=== PATIENT | female | born 1960 | race Caucasian/White ===

== ENCOUNTER → 2017-01-13 | Outpatient (CLI) | payer OTHER ==
[2016-04-22 12:30] VITALS: BP 120/54
[~2017-01-13] MED LIST: ACYC400T PO; ASPI-482 PO; BUSP5TAB PO; CARI350T PO; CHOL10003 PO; CLIN-44 PO; DICL100G7 TP; DULO60CA6 PO; FAMO-63 PO; FISH1CAP PO; HYDR-2679 PO; HYDR-965 PO; IBUP-1060 PO; IBUP1TAB PO; LEVO500T38 PO; LIDO700A4 TP; LISI-338 PO; LORA10TA3 PO; OMEG1CAP38 PO; OMEP20CA9 PO; OMEP20TA PO; PRED-220 PO; PROAIR HFA8.5 GM IH; TRAM50TA PO; ZOLP10TA4 PO; ZOLP5TAB PO; lidocaine TOP; voltaren gel
--- NOTE | 2017-01-13 15:17 | KCIC ---
PQRS STATEMENT One or more of the following individualized dose reduction techniques were utilized for this study: 1.Automated exposure control 2.Adjustment of the mA and/or kV according to patient size 3.Use of iterative reconstruction technique CT maxillofacial Indication: Reason For Study Reason: CHRONIC SINUSITIS / Spl. Instructions: / History: Sinus infections for 2-3 months, congestion, dryness,cough. Technique: multiple contiguous axial images were obtained through the facial bones. Coronal and sagittal reformations were created. Findings: There is mucosal thickening of the bilateral maxillary sinuses with small fluid levels bilaterally slightly larger on the right. Of note, there has been a left medial antrectomy but this is not been performed on the right. The nasopharynx and frontal sinuses are clear. Mastoid air cells are clear. Limited intracranial contents are grossly unremarkable. Globes orbits are within normal limits. Impression: - There are fluid levels within the bilateral maxillary sinuses slightly larger on the right. Correlate for clinical signs and symptoms of acute sinusitis. - There are postsurgical changes of previous left medial antrectomy. Electronically signed by: Roman Alejandre (Jan 13, 2017 15:15:52)
== END | disposition home or self-care (01) ==
LOC: KCIC CT 13:38
PROVIDERS: ATTEND Otolaryngology
DX: J32.9 Chronic sinusitis, unspecified (principal); R09.81 Nasal congestion; J34.89 Other specified disorders of nose and nasal sinuses; R05 Cough
CPT/HCPCS: 70486

== ENCOUNTER → 2017-10-24 | Outpatient (CLI) | payer OTHER ==
[2016-04-22 12:30] VITALS: BP 120/54
[~2017-10-24] MED LIST changes: -CLIN-44 PO; +CLIN150C14 PO; +DICL100G18 TP; -DICL100G7 TP; -LEVO500T38 PO; +LEVO500T59 PO; -OMEP20TA PO; +OMEP20TA8 PO
--- NOTE | 2017-10-24 16:30 | KCIC ---
Three-view bilateral knee dated 10/24/2017. No comparison available. Clinical indication: Bilateral knee pain for one week. FINDINGS: 3 views bilateral knee show normal bony alignment. No displaced fracture. No acute osseous or articular abnormality. Minimal tricompartmental hypertrophic changes. Suspected small joint effusion on the right. No loose body. IMPRESSION: 1. No acute bony abnormality. 2. Mild bilateral tricompartmental DJD. 3. Suspected small joint effusion on the right. Electronically signed by: Simon Pablo MD (10/24/2017 4:27 PM) [facility]-KC[facility]
== END | disposition home or self-care (01) ==
LOC: KCIC 15:56
PROVIDERS: ATTEND Family Medicine
DX: M17.0 Bilateral primary osteoarthritis of knee (principal); M25.462 Effusion, left knee; M25.461 Effusion, right knee
CPT/HCPCS: 73562

== ENCOUNTER → 2018-08-11 | Outpatient (CLI) | payer OTHER ==
[2016-04-22 12:30] VITALS: BP 120/54
--- NOTE | 2018-08-11 13:27 | KCIC ---
EXAM: Thoracic spine, 3 views. HISTORY: Pain. COMPARISON: None. FINDINGS: Total, lateral and swimmer's views of the thoracic spine are obtained. There is mild S-shaped thoracolumbar scoliosis, with dextrocurvature centered at T7 and levocurvature centered at L1. There is no listhesis. The thoracic vertebral bodies are normal in height and the disc spaces are preserved. There is degenerative endplate remodeling with disc space narrowing and osteophytosis at C5-C6 and C6-C7. There is cervical kyphosis centered at C4-C5. No segmentation anomaly is seen. IMPRESSION: 1. Degenerative change involving the lower cervical spine. 2. No acute osseous finding. 3. Mild thoracolumbar scoliosis. Electronically signed by: Maria Luz Wheatley MD (08/11/2018 1:23 PM) [facility]
== END | disposition home or self-care (01) ==
LOC: KCIC 13:04
PROVIDERS: ATTEND Family Medicine
DX: M47.892 Other spondylosis, cervical region (principal); M48.02 Spinal stenosis, cervical region; M41.85 Other forms of scoliosis, thoracolumbar region; M17.0 Bilateral primary osteoarthritis of knee; I10 Essential (primary) hypertension; E78.00 Pure hypercholesterolemia, unspecified; J44.9 Chronic obstructive pulmonary disease, unspecified; K21.9 Gastro-esophageal reflux disease without esophagitis
CPT/HCPCS: 72072

== ENCOUNTER → 2018-09-12 | Outpatient (CLI) | payer OTHER ==
[2016-04-22 12:30] VITALS: BP 120/54
--- NOTE | 2018-09-12 11:59 | KCIC ---
MRI Cervical Spine Without Contrast History: Chronic cervical pain, neck pain into the right upper extremity Technique: Multiplanar, multi sequential noncontrast MR imaging was performed of the cervical spine. Comparison: None Findings: There is motion degradation even for repeated images. Cervical cord caliber is within normal limit without expansile or defined signal abnormality, limited evaluation for more subtle signal change due to motion. There is fluid about the tip of the dens more eccentric to the left, also very minimal fluid associated with the lateral mass articulations at C1-2. Cervical vertebral body stature is maintained. There is grade 1 anterior spondylolisthesis C7-T1, negligible anterior spondylolisthesis T1-2, T2-3, and C2-3. There is straightening of the cervical spine. There is more advanced degenerative disc disease C5-6 and C6-7, minimally at C7-T1, mild disc desiccation C3-4 and C4-5. There is very minimal endplate edema C5-6 and C6-7, no fluid in the intervertebral disc spaces. There is anterior annular tear at C4-5. There is no significant abnormality of the cervical medullary junction. C2-C3: Spinal canal and right neural foramen are adequate. There is fairly severe left facet degenerative change contributing to [id number] narrowing of the left neural foramen. C3-C4: There is shallow protrusion more eccentric to the far right lateral recess. Spinal canal is overall adequate. There is severe facet degenerative change bilaterally. There is likely mild narrowing of left neural foramen and probable [id number] narrowing on the right. There is right uncovertebral degenerative change. C4-C5: There is severe left facet hypertrophic change, to a lesser degree on the right. Spinal canal is adequate. There is probable minimal posterior narrowing of the left neural foramen, right neural foramen overall adequate. C5-C6: There is disc osteophyte complex and bulge. Central canal is narrowed to 7-8 mm. There is bilateral facet degenerative change, also uncovertebral degenerative change greater on the right. There is likely moderate to severe right and probable moderate left neural foramina compromise although poorly characterized due to motion. C6-C7: There is disc osteophyte complex and bulge, central canal narrowed to about 9 mm. The neural foramina are overall adequate. There is mild right uncovertebral degenerative change. C7-T1: There is facet hypertrophic change. Spinal canal is adequate. There is likely small synovial cyst anterior to the right facet articulation about 2 mm in size. There is mild uncovertebral degenerative change. There is fairly severe right and likely mild left neural foramina compromise. There is also likely synovial cyst associated with left facet articulation laterally about 0.6 cm in size, no neural impingement. Impression: 1. Exam is degraded by motion even for repeated images. There is spinal stenosis on the order of 7-8 mm C5-C6 and to lesser degree at C6-7. 2. There is multilevel facet and uncovertebral degenerative change contributing to neural foramina compromise. Neural foramina are suboptimally evaluated due to motion, suspected narrowing greatest on the right at C7-T1, right greater than left at C5-C6, to a lesser degree on the right at C3-C4 and on the left at C2-3. 3. There is degenerative disc disease greatest C5-6 and C6-7. There is multilevel spondylosis. There is multilevel mild abnormal alignment. 4. There is nonspecific fluid about the tip of the dens greater on the left, also minimal fluid associated with the lateral mass articulations at C1-2 more likely be reactive/degenerative in etiology. Electronically signed by: Jono Horne MD (09/12/2018 11:56 AM) [facility]
== END | disposition home or self-care (01) ==
LOC: KCIC MRI 09:04
PROVIDERS: ATTEND Family Medicine
DX: M51.35 Other intervertebral disc degeneration, thoracolumbar region (principal); M43.13 Spondylolisthesis, cervicothoracic region; M47.892 Other spondylosis, cervical region; M48.02 Spinal stenosis, cervical region; M85.88 Other specified disorders of bone density and structure, other site
CPT/HCPCS: 72141

== ENCOUNTER → 2018-11-16 | Outpatient (CLI) | payer OTHER ==
[2016-04-22 12:30] VITALS: BP 120/54
[~2018-11-16] MED LIST changes: +ALBU2.5V8 IH; +ATOR20TA58 PO; +DICL75TA PO; +FEXO180T16 PO; +FLUT1BLS3 IH; +HYDR-3165 PO; -HYDR-965 PO; -PROAIR HFA8.5 GM IH; +TIZA4CAP PO
--- NOTE | 2018-11-16 16:33 | PAIN ---
DATE OF SERVICE: 11/16/2018 INITIAL CONSULTATION FOR PAIN CLINIC CHIEF COMPLAINT: Neck and right upper extremity pain. HISTORY OF PRESENT ILLNESS: The patient is a 58-year-old female who presents with history of pain since about the year 1999, gradually increasing, worse over the past year, pain in the base of the neck, bilateral shoulders radiating to the right upper extremity, mostly in the anterior biceps, anterior forearm with some tingling and numbness in the right hand. The patient reports it is becoming more constant, changes during the day; worse with activity, reaching above her head with her left arm, any weightbearing or carrying items with left arm as well with repetitive motions. The patient reports it is much worse with trying to lay on her left side at night, awakens her from sleep fairly often, at least once or twice a night. The patient reports she has tried chiropractic treatment, also has had physical therapy this year, trigger point injections this year and epidural injections about 14 years ago, all of which were helpful. Chiropractic treatment was temporary. Physical therapy has been temporary as well. The patient reports she has taken Tylenol No.3, which she reports helps only little without much improvement and is not likely what she feels when she takes it. The patient reports no loss of motor function, but significant fatigability with left upper extremity with activities. The patient reports no symptoms in the left upper extremity. The patient did have MRI scan of the cervical spine showing spinal stenosis of 7-8 mm at C5-C6 and to a lesser degree at C6-C7 level with degenerative change, multilevel facet and uncovertebral degenerative change contributing to neural foraminal compromise, greatest on the right at C7-T1, degenerative disk disease greatest at C5-C6 and C6-C7. The patient reports pain is constant, becoming more noticeable, aching, sharp, shooting, dull, tingling and radiating. The patient rates her disability rate from 0-10, 10 being the worst as 5 with family and home responsibilities, 6 with recreation, 2 with social activity, 4 with occupation, 7 with sexual behavior, 1 with self-care and 4 with life support activities. PAST MEDICAL HISTORY: Significant for hearing loss, COPD, cigarette smoking, quit 11 years ago, hypertension, rheumatic fever as a child, arthritis. PREVIOUS SURGERIES: Include shoulder surgery in 2017, wrist surgery in 2007, elbow surgery in 2015 and sinus surgery in 2015 and 2017. CURRENT MEDICATIONS: Include, fexofenadine, atorvastatin, buspirone, ProAir inhaler, lisinopril, zolpidem, daily baby aspirin, vitamins, Cymbalta, tizanidine, diclofenac, atorvastatin, and fluticasone inhaler. ALLERGIES: The patient has no known drug allergies. FAMILY HISTORY: Significant for no major medical problems other than sinus issues, heart disease, osteoporosis and colon cancer. SOCIAL HISTORY: The patient drinks alcohol once or twice a week, does not smoke, quit many years ago. Denies any illegal, illicit or recreational drugs. She is , lives with her spouse, has no children, living at home, lives locally in [place], [place]. REVIEW OF SYSTEMS: The patient's review of systems is positive for those items mentioned in history of present illness. All systems reviewed and otherwise negative; complete, full and well documented on the patient's chart. PHYSICAL EXAMINATION: VITAL SIGNS: The patient's blood pressure is 136/88, pulse is 70, respirations 18, temperature 97.7 degrees Fahrenheit, height is 5 feet 4 inches, weight 137 pounds. GENERAL: The patient is awake, alert, oriented, appropriate, very pleasant demeanor. HEENT: Head shows normocephalic, atraumatic. Extraocular movements are intact and symmetrical. Oral cavity: Mucous membranes moist and pink. Dentition is intact. NECK: Shows anterior throat supple without palpable lymphadenopathy noted. Swallow reflex symmetrical. CHEST: Shows normal with inspection. Breath sounds clear to auscultation bilaterally. HEART: Shows S1, S2 clear. No murmurs auscultated. ABDOMEN: Soft, nontender, nondistended. No palpable organomegaly is noted. No rebound or guarding demonstrated. BACK: Shows spine grossly in the midline. Normal-appearing cervical lordotic curvature, thoracic kyphotic curvature and lumbar lordotic curvature. Cervical paraspinous muscle shows symmetrical on inspection; on palpation shows some moderate tenderness only diffusely in the middle and lower distribution of the paraspinous muscles, and some into the right superior medial trapezius, but without trigger points without radiation. The patient has good rotation of motion of the cervical spine, both laterally greater than 4-5 degrees right and left as well as full extension and full forward flexion without significant pain reported. EXTREMITIES: The patient's upper extremities show deep tendon reflexes at 2+ in biceps and triceps tendons bilaterally. 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 Bicep and tricep flexion is 5/5 and equal bilaterally. Peripheral pulses are 2+ radial distribution. No peripheral edema is noted. Upper extremities are warm and dry to touch, equal in color and appearance. Shoulder shrug is strong and intact without loss of strength or resistance as is abduction of shoulder to 90 degrees without loss of strength on resistance as well, some moderate pain on the right side with resistance bilaterally. Peripheral pulses again 2+. No edema. SKIN: Warm and dry, good turgor. No edema. No sores, rashes or bruising. IMPRESSION: This is a 58-year-old female with: 1. Long history of pain in the base of the neck, right upper extremity in a radicular fashion. 2. MRI scan of cervical spine as noted. 3. Arthritis. 4. Hypertension. 5. Chronic obstructive pulmonary disease. PLAN: Options were discussed with the patient including conservative medical management, physical therapy, interventional techniques and would like to proceed with interventional technique. We discussed a cervical epidural steroid injection using description as well as anatomic model to describe the procedure. The patient will wait for preauthorization with her insurance provider. She has had a clinical C5-C6 and C6-C7 dermatomal radiculopathy in the right upper extremity, status post physical therapy, status post medication management without significant improvement. The patient will continue to do exercises and stretching and strengthening as she has been doing. In the meantime, we will try Medrol Dosepak. The patient was given instruction as well as side effects to be aware of with the medication and will follow up once preauthorization is obtained. We will plan on cervical epidural steroid injection at that time. ANTONIO LOVELACE MD DR: KATIUSKA/thang JOB#: [id number] / [id number]
== END | disposition home or self-care (01) ==
LOC: PNCL 08:55
PROVIDERS: ATTEND Anesthesiology
DX: M50.323 Other cervical disc degeneration at C6-C7 level (principal); M47.813 Spondylosis without myelopathy or radiculopathy, cervicothoracic region; M48.02 Spinal stenosis, cervical region; J44.9 Chronic obstructive pulmonary disease, unspecified; H91.90 Unspecified hearing loss, unspecified ear; I10 Essential (primary) hypertension; M19.90 Unspecified osteoarthritis, unspecified site; Z87.891 Personal history of nicotine dependence; Z82.49 Family history of ischemic heart disease and other diseases of the circulatory system; Z80.0 Family history of malignant neoplasm of digestive organs; Z82.62 Family history of osteoporosis; Z79.899 Other long term (current) drug therapy
CPT/HCPCS: G0463

== ENCOUNTER → 2018-12-05 | Outpatient (CLI) | payer OTHER ==
[2016-04-22 12:30] VITALS: BP 120/54
[~2018-12-05] MED LIST changes: +IOHEXOL 180 MG/ML 10 ML VIAL. ONE; +methylPREDNISolone ACETATE 40 MG/ML VIAL. ONE; +methylPREDNISolone ACETATE 80 MG/ML VIAL. ONE
--- NOTE | 2018-12-05 10:51 | PAIN ---
DATE OF SERVICE: 12/05/2018 PROGRESS NOTE FOR PAIN CLINIC DIAGNOSES: Cervical radiculopathy with cervical degenerative disk disease and cervical spinal stenosis, stroke. HISTORY OF PRESENT ILLNESS: The patient is a 58-year-old female who returns for followup status post initial evaluation and preauthorization for cervical epidural steroid injection. Still reporting pain in the base of the neck and right upper extremity greater than left. The patient reports it is a 9 on a scale of 10 at its worst, 7 on average, 6 at its least. Describes it as burning, aching, sharp, tight, shooting, radiating, becoming more constant, worse with activity, use of the upper extremities, use of the neck, bending, stooping or repetitive motions. The patient reports no new motor or sensory deficits and no new bowel or bladder incontinence. The patient reports it awakens her from sleep, still about every 2-3 hours. PHYSICAL EXAMINATION: VITAL SIGNS: The patient's blood pressure 124/70, pulse 71, respirations 18 and temperature 97.5 degrees Fahrenheit. Height is 5 feet 4 inches and weight is 138 pounds. GENERAL: The patient is awake, alert, oriented, appropriate and very pleasant demeanor. HEENT: Head shows normocephalic and atraumatic. Extraocular movements are intact and symmetrical. Oral cavity, mucous membranes are moist and pink. Dentition is intact. NECK: Shows anterior throat supple without palpable lymphadenopathy noted. Swallow reflex is symmetrical. CHEST: Shows normal on inspection. Breath sounds clear to auscultation bilaterally. HEART: Shows S1 and S2 clear. No murmurs auscultated. ABDOMEN: Soft, nontender and nondistended. No palpable organomegaly is noted. No rebound or guarding demonstrated. BACK: Shows spine grossly in the midline. Cervical lordotic curvature is maintained as is thoracic kyphotic curvature. Cervical paraspinous musculature is symmetrical on inspection, with palpation shows some moderate tenderness in the middle and lower distribution of the cervical paraspinous muscles, more on the right than the left. The patient has good rotational motion, slightly guarded with extension and right and left lateral rotation but good forward flexion without difficulty with the pain reported. EXTREMITIES: The patient's upper extremities show deep tendon reflexes 2+ in the biceps and triceps tendons and are equal. 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 Peripheral pulses are 2+ radial distribution. No peripheral edema is noted bilaterally. Options were discussed with the patient. The patient's old chart was reviewed as well as her current medication regimen updated. Current review of systems updated today as well. We will proceed with a cervical epidural steroid injection today with fluoroscopic guidance. Risks were again discussed including, but not limited to bleeding, infection, possibility of epidural hematoma and subsequent neurologic compromise, dural puncture, headaches, spinal cord and/or nerve damage, side effects of steroid medication and poor results regarding pain control. The patient understands and wished to proceed. The patient will return to the clinic in approximately 2 weeks for followup, was counseled as to return appointment, activity level and side effects to be aware of. DIAGNOSES: Cervical radiculopathy with cervical degenerative disk disease and cervical spinal stenosis. PROCEDURE: Cervical epidural steroid injection, translaminar approach, C6-C7 level using C-arm fluoroscopic guidance under sterile prep and drape using local anesthetic. MEDICATION INJECTED: A total of 120 mg Depo-Medrol plus 5 mL of preservative-free normal saline and 2 mL of Isovue for contrast. CONDITION AT DISCHARGE: Stable. The patient tolerated the procedure well, had no complications. ANTONIO LOVELACE MD DR: KATIUSKA/nts JOB#: [id number] / [id number]
== END | disposition home or self-care (01) ==
LOC: PNCL 09:33
PROVIDERS: ATTEND Anesthesiology
DX: M50.123 Cervical disc disorder at C6-C7 level with radiculopathy (principal); M48.02 Spinal stenosis, cervical region; I63.9 Cerebral infarction, unspecified
CPT/HCPCS: 62321; J1030; J1040; Q9965

== ENCOUNTER → 2019-12-04 | Outpatient (CLI) | payer OTHER ==
[2016-04-22 12:30] VITALS: BP 120/54
[~2019-12-04] MED LIST changes: -IOHEXOL 180 MG/ML 10 ML VIAL. ONE; +OMEP20CA16 PO; -OMEP20CA9 PO; -methylPREDNISolone ACETATE 40 MG/ML VIAL. ONE; -methylPREDNISolone ACETATE 80 MG/ML VIAL. ONE
--- NOTE | 2019-12-04 14:12 | KCIC ---
EXAM: Left hip, 2 views. HISTORY: Pain. COMPARISON: None. FINDINGS: 2 views of the left hip are obtained. There is no fracture, dislocation or subacute fixation. There is mild marginal acetabular and femoral head spurring. There is degenerative change of the visualized lumbar spine. IMPRESSION: Mild left hip osteoarthritis. Electronically signed by: Maria Luz Wheatley MD (12/04/2019 2:09 PM) [id number]
== END | disposition home or self-care (01) ==
LOC: KCIC 12:47
PROVIDERS: ATTEND Family Medicine
DX: M16.12 Unilateral primary osteoarthritis, left hip (principal); M47.816 Spondylosis without myelopathy or radiculopathy, lumbar region
CPT/HCPCS: 73502